=== PATIENT | male | born 1960 | race Caucasian/White ===

== ENCOUNTER 2018-02-01 11:27 | Observation (INO) | payer MEDICARE, OTHER ==
[~2018-02-01] VITALS: Ht 193 cm; Wt 120.0 kg
[~2018-02-01 11:27] MED LIST: CLON1TAB PO; LOSA25TA2 PO; OMEP10CA2; QUET25TA5; ZOLP10TA PO
[2018-02-01 12:28] LABS: BASOPHILS # (AUTO) 0.03 x10^3/uL (0-0.1); BASOPHILS % (AUTO) 0 % (0-1); EOSINOPHILS # (AUTO) 0.07 x10^3/uL (0-0.4); EOSINOPHILS % (AUTO) 1 % (1-7); LYMPHOCYTES # (AUTO) 1.69 x10^3/uL (1-3.4); LYMPHOCYTES % (AUTO) 23 % (22-44); MD NO; MEAN CORPUSCULAR HEMOGLOBIN 32.2 pg (27.5-34.5); MEAN CORPUSCULAR HGB CONC 34.3 g/dL (33.2-36.2); MEAN CORPUSCULAR VOLUME 94.1 fL (81-97); MEAN PLATELET VOLUME 9.3 fL (7.4-10.4); MONOCYTES # (AUTO) 0.59 x10^3/uL (0.2-0.8); MONOCYTES % (AUTO) 8 % (2-9); NEUTROPHILS # (AUTO) 4.96 x10^3/uL (1.8-6.8); NEUTROPHILS % (AUTO) 68 % (42-75); PLATELET COUNT 307 x10^3/uL (130-400); RED BLOOD COUNT 4.17 x10^6/uL (4.38-5.82); RED CELL DISTRIBUTION WIDTH 13.6 % (9.4-14.8)
[2018-02-01 12:40] LABS: ALBUMIN 3.7 g/dL (3.4-5.0); ANION GAP 6 mmol/L (5-15); CALCIUM 9.7 mg/dL (8.5-10.1); CHLORIDE 102 mmol/L (98-107); SALICYLATE LEVEL 2.8 mg/dL (2.8-20.0)
[2018-02-01 12:43] LABS: ALANINE AMINOTRANSFERASE 33 U/L (12-78); ALKALINE PHOSPHATASE 82 U/L (45-117); BILIRUBIN,TOTAL 0.6 mg/dL (0.2-1.0); CREATININE 1.05 mg/dL (0.7-1.3); TOTAL PROTEIN 8.4 g/dL (6.4-8.2)
[2018-02-01 12:57] LABS: ACETAMINOPHEN < 2 mcg/mL (10-30)
[2018-02-01 13:07] LABS: CULTURE INDICATED? YES; MICROSCOPIC INDICATED
[2018-02-01 13:21] LABS: AMPHETAMINE SCREEN, URINE Negative (Negative); BARBITURATE SCREEN, URINE Negative (Negative); BENZODIAZEPINE SCREEN, URINE Negative (Negative); CANNABINOID SCREEN, URINE Negative (Negative); COCAINE SCREEN, URINE Negative (Negative); METHADONE SCREEN, URINE Negative (Negative); OPIATE SCREEN, URINE Negative (Negative)
[2018-02-01] MEDS ORDERED: QUET400T4 PO (13:45)
[2018-02-01] MEDS ORDERED: LORazepam 1MG TABLET PO PRN (14:00)
[2018-02-01] MEDS ORDERED: DOCUSATE 100 MG CAPSULE PO PRN (14:00)
[2018-02-01] MEDS ORDERED: IBUPROFEN 600 MG TABLET PO PRN (14:00)
[2018-02-01] MEDS ORDERED: ACETAMINOPHEN 325 MG TABLET PO PRN (14:00)
[2018-02-01] MEDS ORDERED: POLYETHYLENE GLYCOL 17 GM PACKET PO PRN (14:00)
[2018-02-01 15:00] VITALS: BP 128/74
[2018-02-01 19:36] VITALS: BP 102/65
[2018-02-01] MEDS ORDERED: QUETIAPINE 200 MG TABLET PO SCH (21:00)
[2018-02-02 07:52] VITALS: BP 110/70
== END 2018-02-02 14:30 ==
LOC: ED 13:26 → EDIP 13:27 → ED 13:55 → 2N 15:05
PROVIDERS: ADMIT Hospitalist; ATTEND Hospitalist
DX: R45.851 Suicidal ideations (principal); F33.3 Major depressive disorder, recurrent, severe with psychotic symptoms; K21.9 Gastro-esophageal reflux disease without esophagitis; Z79.899 Other long term (current) drug therapy
CPT/HCPCS: 36415; 80053; 80307; 80329; 81001; 85025; 87086; 99285; G0378; G0480